=== PATIENT | female | born 1935 ===

== ENCOUNTER 2018-05-29 06:26 | Emergency (ER) | payer MEDICARE ==
[2018-05-29 06:35] VITALS: TEMP 98
[2018-05-29 07:15] VITALS: O2SAT 98
[2018-05-29 07:55] LABS: BASO # 0.1 K/uL (0.0-0.2); BASO % 1.3 % (0.0-2.0); EOS # 0.1 K/uL (0.0-0.7); EOS % 2.1 % (0.0-4.0); HEMOGLOBIN 11.6 g/dL (11.0-16.0); LYMPH # 1.1 K/uL (1.0-4.3); MEAN CELL VOLUME 84.7 fL (81.0-99.0); MEAN CORPUSCULAR HEMOGLOBIN 28.8 pg (27.0-31.0); MEAN PLATELET VOLUME 8.4 fL (7.2-11.7); MONO # 0.6 K/uL (0.0-0.8); MONO % 9.1 % (0.0-10.0); NEUT # 4.2 K/uL (1.8-7.0); NEUT % 69.5 % (50.0-75.0); RBC 4.04 Mil/uL (3.80-5.20); RED CELL DISTRIBUTION WIDTH 13.4 % (11.5-14.5); WHITE BLOOD COUNT 6.1 K/uL (4.8-10.8)
[2018-05-29 08:41] LABS: SQUAMOUS EPITHIAL 1 /hpf (0-5); URINE BACTERIA RARE (<OCC); URINE BILIRUBIN NEGATIVE (NEGATIVE); URINE BLOOD NEGATIVE (NEGATIVE); URINE CLARITY Clear (Clear); URINE COLOR Straw (YELLOW); URINE GLUCOSE (UA) 1+ mg/dL (Normal); URINE LEUKOCYTE ESTERASE 1+ Leu/uL (Negative); URINE PROTEIN NEGATIVE (NEGATIVE); URINE UROBILINOGEN NORMAL mg/dL (0.2-1.0)
[2018-05-29 08:53] LABS: CK-MB 1.04 ng/mL (0.0-3.38)
--- NOTE | 2018-05-29 08:53 | C.PDOC ---
History Of Present Illness 82 y/o female, brought to ER by ambulance for evaluation of dizziness. Patient states that she felt light-headed when she woke up around 4:30 am. Patient states that the sensation lasted until she came to the ER. Patient reports that she check her BP at home and her systolic BP was in the 190's. Denies having CP, SOB, palpitations, sensation of room spinning around her, visual changes, slurred speech,facial droop, extremity weakness, and sensory changes. Time Seen by Provider: 05/29/18 07:07 Chief Complaint (Nursing): Dizziness/Lightheaded History Per: Patient History/Exam Limitations: no limitations Onset/Duration Of Symptoms: Hrs Current Symptoms Are (Timing): Gone Past Medical History Reviewed: Historical Data, Nursing Documentation, Vital Signs Vital Signs: Last Vital Signs Temp 98 F 05/29/18 06:32 Pulse 74 05/29/18 07:12 Resp 15 05/29/18 07:12 BP 149/66 05/29/18 07:12 Pulse Ox 98 05/29/18 07:12 - Medical History PMH: HTN, Hypercholesterolemia Surgical History: No Surg Hx Family History: States: No Known Family Hx - Social History Hx Alcohol Use: No Hx Substance Use: No - Immunization History Hx Tetanus Toxoid Vaccination: No Hx Influenza Vaccination: Yes Hx Pneumococcal Vaccination: No Review Of Systems Except As Marked, All Systems Reviewed And Found Negative. Constitutional: Negative for: Fever, Chills Cardiovascular: Negative for: Chest Pain, Palpitations Respiratory: Negative for: Shortness of Breath Gastrointestinal: Negative for: Vomiting, Abdominal Pain Neurological: Positive for: Dizziness. Negative for: Weakness, Numbness, Hea dache Physical Exam - Physical Exam Appears: Non-toxic, No Acute Distress Skin: Normal Color, Warm, Dry Head: Atraumatic, Normacephalic Eye(s): bilateral: Normal Inspection, PERRL, EOMI, Other (no nystagmus) Nose: Normal Oral Mucosa: Moist Neck: Supple Chest: Symmetrical Cardiovascular: Rhythm Regular Respiratory: Normal Breath Sounds, No Rales, No Rhonchi, No Wheezing Gastrointestinal/Abdominal: Normal Exam, Soft, No Tenderness, No Guarding, No Rebound Extremity: Normal ROM Neurological/Psych: Oriented x3, Normal Speech, Normal Cranial Nerves, Normal Motor, Normal Sensation ED Course And Treatment - Laboratory Results Result Diagrams: 05/29/18 07:56 05/29/18 08:28 Lab Results: Urine Color Straw (YELLOW) 05/29/18 08:22 Urine Clarity Clear (Clear) 05/29/18 08:22 Urine pH 6.0 (5.0-8.0) 05/29/18 08:22 Ur Specific [place] 1.011 (1.003-1.030) 05/29/18 08:22 Urine Protein Negative mg/dL (NEGATIVE) 05/29/18 08:22 Urine Glucose (UA) 1+ mg/dL (Normal) 05/29/18 08:22 Urine Ketones Negative mg/dL (NEGATIVE) 05/29/18 08:22 Urine Blood Negative (NEGATIVE) 05/29/18 08:22 Urine Nitrate Negative (NEGATIVE) 05/29/18 08:22 Urine Bilirubin Negative (NEGATIVE) 05/29/18 08:22 Urine Urobilinogen Normal mg/dL (0.2-1.0) 05/29/18 08:22 Ur Leukocyte Esterase 1+ Cat/uL (Negative) H 05/29/18 08:22 Urine WBC (Auto) 9 /hpf (0-5) H 05/29/18 08:22 Urine RBC (Auto) 1 /hpf (0-3) 05/29/18 08:22 Ur Squamous Epith Cells 1 /hpf (0-5) 05/29/18 08:22 Urine Bacteria Rare (<OCC) 05/29/18 08:22 O2 Sat by Pulse Oximetry: 98 (RA) Pulse Ox Interpretation: Normal Progress Note: Labs, UA, and ECG ordered. Disposition Counseled Patient/Family Regarding: Diagnosis, Need For Followup, Rx Given - Disposition Referrals: Jim Sosa [Staff Provider] - Disposition: HOME/ ROUTINE Disposition Time: 10:00 Condition: STABLE Additional Instructions: FOLLOW UP WITH YOUR DOCTOR IN 1-2 DAYS USE MEDICATION DIRECTED RETURN TO ER IF SYMPTOMS WORSEN SEGUIR CON BOURGEOIS MDICO EN 1-2 YBARRA UTILICE MEDICAMENTOS TRISTIN SE DIRIGE REGRESAR A ER SI LOS SNTOMAS SE ENCUENTRAN Prescriptions: Nitrofurantoin Macrocrystals [Macrobid] 1 cap PO BID #14 cap Instructions: Urinary Tract Infection, Adult (DC) Forms: [facility] (Italian) Print Language: YAKUT - Clinical Impression Clinical Impression: UTI (urinary tract infection) - Scribe Statement The provider has reviewed the documentation as recorded by the Scribe Brady Anderson Provider Attestation: All medical record entries made by the Scribe were at my direction and p ersonally dictated by me. I have reviewed the chart and agree that the record accurately reflects my personal performance of the history, physical exam, medical decision making, and the department course for this patient. I have also personally directed, reviewed, and agree with the discharge instructions and disposition.
[2018-05-29 09:05] LABS: ALB/GLOB RATIO 1.2 (1.0-2.1); ALBUMIN 4.3 g/dL (3.5-5.0); ALT/SGPT 22 U/L (9-52); AST/SGOT 41 U/L (14-36); BLOOD UREA NITROGEN 27 mg/dL (7-17); CALCIUM 9.2 mg/dl (8.6-10.4); GFR NON-AFRICAN AMERICAN 53
[2018-05-29 09:46] VITALS: PULSE 76
[2018-05-29 09:47] VITALS: BP 142/66; RESP 11
--- NOTE | 2018-05-30 12:30 | CARD ---
APPROVED REPORT Date of service: 05/29/2018 EKG Measurement Heart [id number] <Conclusion> Normal sinus rhythm Right bundle branch block Abnormal ECG
== END 2018-05-29 10:27 | disposition home or self-care (01) ==
LOC: C.ER 06:26
DX: N39.0 Urinary tract infection, site not specified (principal); E78.00 Pure hypercholesterolemia, unspecified; I10 Essential (primary) hypertension

== ENCOUNTER 2018-06-26 11:21 | Outpatient (CLI) | payer MEDICARE | END 2018-06-26 11:22 | disposition home or self-care (01) | LOC: C.DEXAIC 11:22 | DX: M81.0 Age-related osteoporosis without current pathological fracture (principal); Z12.31 Encounter for screening mammogram for malignant neoplasm of breast ==